=== PATIENT | female | born 1950 | race Caucasian/White ===

== ENCOUNTER 2018-05-02 00:03 | Emergency (ER) | payer MEDICARE ==
[~2018-05-02] VITALS: Ht 162.6 cm; Wt 104.5 kg
[2018-05-02 00:19] VITALS: TEMP 97.7
[2018-05-02] MEDS ORDERED: TRIAMCINOLONE A15 GM TP (01:33)
[2018-05-02 01:51] VITALS: BP 173/75; PULSE 83
== END 2018-05-02 01:59 | disposition home or self-care (01) ==
LOC: COL.ER 00:03
DX: I83.93 Asymptomatic varicose veins of bilateral lower extremities (principal); L29.9 Pruritus, unspecified; E11.9 Type 2 diabetes mellitus without complications; I10 Essential (primary) hypertension

== ENCOUNTER 2018-05-07 02:49 | Emergency (ER) | payer MEDICARE ==
[~2018-05-07] VITALS: Ht 162.6 cm; Wt 104.5 kg
[~2018-05-07 02:49] MED LIST: TRIAMCINOLONE A15 GM TP
[2018-05-07 02:52] VITALS: TEMP 98.4
[2018-05-07] MEDS ORDERED: LANTUS100 U/ML SQ (03:13)
[2018-05-07] MEDS ORDERED: GLUCOPHAGE1000 MG PO (03:13)
[2018-05-07] MEDS ORDERED: HUMALOG100 U/ML SQ (03:13)
[2018-05-07] MEDS ORDERED: MICARDIS HCT 251 TAB PO (03:14)
[2018-05-07 03:44] LABS: COLLECTION METHOD CLEAN CATCH
[2018-05-07 03:45] LABS: BASO % 0.4 % (0.0-2.0); EOS # 0.5 (0.0-0.7); EOS % 4.9 % (0-4.0); GRAN % 48.9 % (42.2-75.2); LYMPH # 3.8 (1.2-3.4); LYMPH % 37.6 % (20.0-51.0); MEAN CELL VOLUME 81 fl (80.0-100.0); MEAN CORPUSCULAR HEMOGLOBIN 29 pg (27.0-31.0); MEAN CORPUSCULAR HGB CONC 36 g/dl (33.0-37.0); MEAN PLATELET VOLUME 9.6 fl (7.4-10.4); MONO # 0.8 (0.1-0.6); MONO % 7.9 % (1.7-9.3); PLATELET COUNT 317 K/mm3 (130-400); REDCELL DISTRIBUTION WIDTH-CV 12.3 % (11.5-14.5)
[2018-05-07 03:52] LABS: PH 6 (5-8); SQUAMOUS EPITHELIAL 0-2 /hpf; URINE APPEARANCE Clear; URINE BACTERIA Rare /hpf; URINE BILIRUBIN Negative (NEGATIVE); URINE BLOOD Negative (NEGATIVE); URINE COLOR Yellow; URINE GLUCOSE Negative (NEGATIVE); URINE KETONE Negative (NEGATIVE); URINE LEUKOCYTE ESTERASE Negative (NEGATIVE); URINE NITRATE Negative (NEGATIVE); URINE PROTEIN(semi-quant) Negative (NEGATIVE); URINE RBC 0-2 /hpf; URINE UROBILINOGEN Negative (NEGATIVE)
[2018-05-07 04:00] LABS: ALBUMIN 4.2 gm/dL (3.5-5.0); BILIRUBIN,TOTAL 0.7 mg/dL (0.0-1.0); C-REACTIVE PROTEIN 1.1 mg/dL (0.0-0.9); CREATININE, serum 0.71 mg/dL (0.52-1.25); POTASSIUM 3.6 mmol/L (3.4-5.0); TOTAL PROTEIN 7.5 gm/dL (6.4-8.2)
[2018-05-07 04:32] LABS: ERYTHROCYTE SEDIMENTATION RATE 11 mm/hr (0-30)
[2018-05-07] MEDS ORDERED: MEDROL 4MG DOSPA4 MG PO (05:26)
[2018-05-07] MEDS ORDERED: ELIMITE TOP (05:26)
[2018-05-07] MEDS ORDERED: MICARDIS80 MG PO (05:26)
[2018-05-07 05:45] VITALS: BP 124/82; PULSE 86
== END 2018-05-07 05:45 | disposition home or self-care (01) ==
LOC: COL.ER 02:49
PROVIDERS: Emergency Medicine
DX: R21 Rash and other nonspecific skin eruption (principal); E11.9 Type 2 diabetes mellitus without complications; Z79.4 Long term (current) use of insulin
CPT/HCPCS: J7512

== ENCOUNTER 2019-01-06 23:44 | Emergency (ER) | payer MEDICARE ==
[~2019-01-06] VITALS: Ht 162.6 cm; Wt 98.2 kg
[~2019-01-06 23:44] MED LIST changes: +ELIMITE TOP; +GLUCOPHAGE1000 MG PO; +HUMALOG100 U/ML SQ; +LANTUS100 U/ML SQ; +MEDROL 4MG DOSPA4 MG PO; +MICARDIS HCT 251 TAB PO; +MICARDIS80 MG PO
[2019-01-07 02:45] VITALS: PULSE 82; TEMP 98.4
[2019-01-07 03:03] VITALS: BP 169/86
== END 2019-01-07 02:45 | disposition home or self-care (01) ==
LOC: COL.ER 23:44
DX: S62.306A Unspecified fracture of fifth metacarpal bone, right hand, initial encounter for closed fracture (principal); S20.211A Contusion of right front wall of thorax, initial encounter; I10 Essential (primary) hypertension; E11.9 Type 2 diabetes mellitus without complications; Z79.4 Long term (current) use of insulin; W01.0XXA Fall on same level from slipping, tripping and stumbling without subsequent striking against object, initial encounter; Y92.009 Unspecified place in unspecified non-institutional (private) residence as the place of occurrence of the external cause

== ENCOUNTER 2020-05-23 17:38 | Emergency (ER) | payer MEDICARE ==
[~2020-05-23] VITALS: Ht 162.6 cm; Wt 97.7 kg
[2020-05-23 17:46] VITALS: TEMP 98.7
[2020-05-23 18:39] LABS: BASO # 0.1 (0.0-0.2); BASO % 0.6 % (0.0-2.0); EOS # 0.2 (0.0-0.7); EOS % 1.9 % (0-4.0); GRAN # 4.6 (1.4-6.5); GRAN % 51.4 % (42.2-75.2); HEMATOCRIT 40.6 % (37.0-47.0); HEMOGLOBIN 13.5 g/dl (12.5-16.0); LYMPH # 3.4 (1.2-3.4); LYMPH % 37.7 % (20.0-51.0); MEAN CELL VOLUME 85 fl (80.0-100.0); MEAN CORPUSCULAR HEMOGLOBIN 28 pg (27.0-31.0); MEAN CORPUSCULAR HGB CONC 33 g/dl (33.0-37.0); MEAN PLATELET VOLUME 10.3 fl (7.4-10.4); MONO # 0.7 (0.1-0.6); PLATELET COUNT 305 K/mm3 (130-400); RED BLOOD COUNT 4.76 M/mm3 (4.10-5.30); REDCELL DISTRIBUTION WIDTH-CV 12.8 % (11.5-14.5)
[2020-05-23 18:45] LABS: ALBUMIN 4.2 gm/dL (3.5-5.0); BILIRUBIN,TOTAL 0.5 mg/dL (0.0-1.0); CALCIUM 9.4 mg/dL (8.4-10.2); CREATININE, serum 0.61 (0.52-1.25); MAGNESIUM 1.3 mg/dL (1.6-2.3); TOTAL PROTEIN 8.1 gm/dL (6.4-8.2)
[2020-05-23] MEDS ORDERED: EPA FISH OIL1 SGL PO (18:58)
[2020-05-23] MEDS ORDERED: ASPIRIN 81M81 MG/TA2 PO (18:59)
[2020-05-23] MEDS ORDERED: ZYRTEC 10MG10 MG PO (18:59)
[2020-05-23] MEDS ORDERED: BENADRYL25 M2 PO (19:00)
[2020-05-23] MEDS ORDERED: MOTRIN 200200 MG/TAB PO (19:01)
[2020-05-23 21:31] VITALS: BP 130/79; PULSE 84
[2020-05-23] MEDS ORDERED: LANTUS100 U/ML SQ (21:48)
== END 2020-05-23 21:58 | disposition home or self-care (01) ==
LOC: COL.ER 17:38
PROVIDERS: Emergency Medicine
DX: R20.2 Paresthesia of skin (principal); E11.9 Type 2 diabetes mellitus without complications; I10 Essential (primary) hypertension; Z79.4 Long term (current) use of insulin; Z79.82 Long term (current) use of aspirin
CPT/HCPCS: J3475

== ENCOUNTER 2020-10-20 00:09 | Observation (INO) | payer MEDICARE ==
[~2020-10-20] VITALS: Ht 162.6 cm; Wt 100.0 kg
[~2020-10-20 00:09] MED LIST changes: +ASPIRIN 81M81 MG/TA2 PO; +BENADRYL25 M2 PO; +EPA FISH OIL1 SGL PO; +MOTRIN 200200 MG/TAB PO; +ZYRTEC 10MG10 MG PO
[2020-10-20 01:04] LABS: COLLECTION METHOD CLEAN CATCH
[2020-10-20 01:10] LABS: PH 6 (5-8); SQUAMOUS EPITHELIAL None Seen /hpf; URINE APPEARANCE Clear; URINE BACTERIA None Seen /hpf; URINE BILIRUBIN Negative (NEGATIVE); URINE BLOOD Negative (NEGATIVE); URINE COLOR Straw; URINE GLUCOSE Negative (NEGATIVE); URINE KETONE Negative (NEGATIVE); URINE LEUKOCYTE ESTERASE Negative (NEGATIVE); URINE NITRATE Negative (NEGATIVE); URINE PROTEIN(semi-quant) Negative (NEGATIVE); URINE RBC None Seen /hpf; URINE UROBILINOGEN Negative (NEGATIVE)
[2020-10-20 01:45] LABS: BASO % 0.3 % (0.0-2.0); EOS # 0.1 (0.0-0.7); EOS % 0.8 % (0-4.0); GRAN # 7.1 (1.4-6.5); GRAN % 55.2 % (42.2-75.2); HEMOGLOBIN 15.1 g/dl (12.5-16.0); LYMPH # 4.7 (1.2-3.4); LYMPH % 36.4 % (20.0-51.0); MEAN CELL VOLUME 82 fl (80.0-100.0); MEAN CORPUSCULAR HEMOGLOBIN 29 pg (27.0-31.0); MEAN CORPUSCULAR HGB CONC 35 g/dl (33.0-37.0); MEAN PLATELET VOLUME 9.5 fl (7.4-10.4); MONO # 0.9 (0.1-0.6); MONO % 6.9 % (1.7-9.3); PLATELET COUNT 321 K/mm3 (130-400); RED BLOOD COUNT 5.27 M/mm3 (4.10-5.30); REDCELL DISTRIBUTION WIDTH-CV 12.3 % (11.5-14.5)
[2020-10-20 01:56] LABS: ALBUMIN 4.6 gm/dL (3.5-5.0); BILIRUBIN,TOTAL 0.8 mg/dL (0.0-1.0); CALCIUM 9.3 mg/dL (8.4-10.2); CREATININE, serum 0.63 (0.52-1.25); TOTAL PROTEIN 8.8 gm/dL (6.4-8.2)
[2020-10-20 02:08] LABS: MAGNESIUM 1.5 mg/dL (1.6-2.3)
[2020-10-20] MEDS ORDERED: HUMALOG100 U/ML SQ (05:05)
[2020-10-20] MEDS ORDERED: LANTUS100 U/ML SQ (05:05)
--- NOTE | 2020-10-20 06:10 | NUR ---
Patient arrives to the [facility] at 0610, alert and oriented. No pain, a little nausea earlier but better with the bag of sodium and magnesium. Some headache.
[2020-10-20 06:23] VITALS: BP 140/55; PULSE 68; TEMP 98.1
--- NOTE | 2020-10-20 07:15 | NUR ---
Lab in with pt at this time. Reported that they are not able to get any labs and would be back to try again. Pt reports feeling okay at this time. Gave her some gatorade to drink
[2020-10-20] MEDS ORDERED: LAMISIL250 M1 PO (08:03)
[2020-10-20 10:30] LABS: BASO # 0.1 (0.0-0.2); BASO % 0.4 % (0.0-2.0); EOS # 0.1 (0.0-0.7); EOS % 0.8 % (0-4.0); GRAN % 54.9 % (42.2-75.2); HEMOGLOBIN 14.1 g/dl (12.5-16.0); LYMPH # 4.6 (1.2-3.4); LYMPH % 36.3 % (20.0-51.0); MEAN CELL VOLUME 83 fl (80.0-100.0); MEAN CORPUSCULAR HEMOGLOBIN 29 pg (27.0-31.0); MEAN CORPUSCULAR HGB CONC 35 g/dl (33.0-37.0); MEAN PLATELET VOLUME 9.8 fl (7.4-10.4); MONO # 0.9 (0.1-0.6); MONO % 7.2 % (1.7-9.3); PLATELET COUNT 311 K/mm3 (130-400); RED BLOOD COUNT 4.82 M/mm3 (4.10-5.30); REDCELL DISTRIBUTION WIDTH-CV 12.3 % (11.5-14.5)
[2020-10-20 10:39] LABS: CREATININE, serum 0.57 (0.52-1.25); POTASSIUM 3.7 mmol/L (3.4-5.0)
--- NOTE | 2020-10-20 11:11 | NUR ---
Pt has been independent in the room. She was a hard stick for labs, BERNARD Boyle did get labs drawn. Pt has not had any overall pain complaints. She stated that she does have some nerve pain on her left arm and leg. She was to follow up with Dr Rollins in the last couple weeks, but stated she did not feel well enough.
[2020-10-20 11:28] VITALS: BP 154/84; PULSE 86; TEMP 98.2
--- NOTE | 2020-10-20 13:38 | NUR ---
Pt reports not feeling well. Checked her BS, it was 47. Gave pt some peanut butter, crackers, orange juice and milk. Pt is also ordering some lunch. She stated that she doesn't always take her insulin because she does not usually eat 3 meals a day. Pt did eat a good breakfast, and did have a general breakfast as it was not entered as an ADA diet at that time
[2020-10-20 15:39] LABS: CALCIUM 8.5 mg/dL (8.4-10.2); CREATININE, serum 0.69 (0.52-1.25); POTASSIUM 3.5 mmol/L (3.4-5.0)
[2020-10-20 16:30] VITALS: BP 142/68; PULSE 81; TEMP 98
[2020-10-20 17:30] LABS: CALCIUM 8.8 mg/dL (8.4-10.2); CREATININE, serum 0.69 (0.52-1.25); POTASSIUM 3.9 mmol/L (3.4-5.0)
--- NOTE | 2020-10-20 20:00 | NUR ---
Report received, assumed care for legal billing coordinator. Assessment complete. A&Ox3. Denies pain/nausea/shortness of breath. VS remain stable. NC WNL. Voiding without difficulty. No free water enforced-drinking gatorade. NS@75ml/hr to right forearm IV-infusing without difficulty. plan of care discussed for this shift to include HS meds/calling for needs. Verbalizes understanding. Call light in reach. Will monitor.
[2020-10-20 20:54] VITALS: BP 145/57; PULSE 79; TEMP 98.5
--- NOTE | 2020-10-20 21:22 | NUR ---
Called with c/o headache. Rating pain 6/10 on pain scale. Tramadol given per dr order. Will monitor.
[2020-10-20 22:22] LABS: CALCIUM 8.5 mg/dL (8.4-10.2); CREATININE, serum 0.67 (0.52-1.25)
--- NOTE | 2020-10-20 23:29 | NUR ---
Called with c/o cough/unable to sleep. Requesting robitussin and sleep aide. Hospitalist Radha notified and new orders initiated. Will continue to monitor.
[2020-10-20 23:45] VITALS: BP 153/63; PULSE 85; TEMP 97.9
[2020-10-21 04:23] VITALS: BP 144/78; BP 169/87; PULSE 83; TEMP 98.1
--- NOTE | 2020-10-21 04:46 | NUR ---
Rested well after receiving tramadol/robitussin/melatonin. C/O headache at the beginning of the shift. Tele showing SR with AVB. NC WNL. NA level increased to 130. IV fluids continue to infuse-NS@75ml/hr to right FA IV. Denies current needs. Call light in reach. Will monitor.
[2020-10-21 07:25] LABS: BASO % 0.4 % (0.0-2.0); EOS # 0.1 (0.0-0.7); EOS % 1.7 % (0-4.0); GRAN # 3.8 (1.4-6.5); GRAN % 45.8 % (42.2-75.2); LYMPH # 3.6 (1.2-3.4); LYMPH % 42.7 % (20.0-51.0); MEAN CELL VOLUME 84 fl (80.0-100.0); MEAN CORPUSCULAR HGB CONC 34 g/dl (33.0-37.0); MEAN PLATELET VOLUME 9.8 fl (7.4-10.4); MONO # 0.8 (0.1-0.6); MONO % 9.2 % (1.7-9.3); PLATELET COUNT 249 K/mm3 (130-400); RED BLOOD COUNT 4.21 M/mm3 (4.10-5.30); REDCELL DISTRIBUTION WIDTH-CV 12.3 % (11.5-14.5)
[2020-10-21 07:26] LABS: HEMATOCRIT 35.2 % (37.0-47.0); HEMOGLOBIN 12.1 g/dl (12.5-16.0); MEAN CORPUSCULAR HEMOGLOBIN 29 pg (27.0-31.0)
[2020-10-21 07:58] LABS: CALCIUM 8.4 mg/dL (8.4-10.2); CREATININE, serum 0.61 (0.52-1.25); POTASSIUM 3.7 mmol/L (3.4-5.0)
[2020-10-21 08:17] VITALS: BP 143/62; PULSE 75; TEMP 98
--- NOTE | 2020-10-21 09:00 | NUR ---
PT PLEASANT, AOX4, DENIES PAIN/DISCOMFORT, IV SITE CDI W/O ERYTHEMA, PT R LEG SLIGHTLY WEAKER THAN LEFT, ASSESSMENT PERFORMED, MEDICATIONS GIVEN, INSULIN ADMINSITRATION DISCUSSED WITH TATIANNA ALLAN. 60 UNITS OF NOVOLOG HELD.
[2020-10-21] MEDS ORDERED: AMOXICILLIN 8751 TAB PO (10:25)
[2020-10-21] MEDS ORDERED: ROBITUSSIN DM 105 ML PO (10:28)
[2020-10-21] MEDS ORDERED: MICARDIS80 MG PO (10:32)
[2020-10-21 11:53] VITALS: BP 146/53; PULSE 78; TEMP 97.7
--- NOTE | 2020-10-21 14:48 | NUR ---
DISCHARGE EDUCATION PROVIDED, IV REMOVED, TELE DC'D. PT PLEASANT, ATE 100% OF LUNCH, NO OTHER NEEDS
--- NOTE | 2020-10-21 15:28 | NUR ---
green end worker met with patient to discuss discharge planning. Patient states she will return home where she lives alone and has her car in the parking to drive home. Patient's primary care provider is Dr Rust and patient denies concerns related to discharging home today.
[2020-10-21 16:43] VITALS: BP 161/71; PULSE 84; TEMP 98.1
--- NOTE | 2020-10-21 18:37 | NUR ---
pt wanting to stay to eat dinner, insulin given, discharge paperwork finished and pt reports she is driving herself home, no other needs before pt leaves facility
--- NOTE | 2020-10-21 19:03 | NUR ---
PT ESCORTED OUT VIA WHEELCHAIR WITH PT BELONGINGS. NO OHTER NEEDS
== END 2020-10-21 19:03 | disposition home or self-care (01) ==
LOC: COL.ER 00:09 → MEDICAL 02:23
PROVIDERS: Emergency Medicine; Nurse Practitioner Family; Physician Assistant; ADMIT Internal Medicine
DX: E87.1 Hypo-osmolality and hyponatremia (principal); E83.42 Hypomagnesemia; N28.9 Disorder of kidney and ureter, unspecified; J22 Unspecified acute lower respiratory infection; J01.80 Other acute sinusitis; B96.89 Other specified bacterial agents as the cause of diseases classified elsewhere; E11.9 Type 2 diabetes mellitus without complications; I10 Essential (primary) hypertension; Z20.822 Contact with and (suspected) exposure to COVID-19; R74.01 Elevation of levels of liver transaminase levels; N28.1 Cyst of kidney, acquired; R19.7 Diarrhea, unspecified; R01.1 Cardiac murmur, unspecified; Z79.4 Long term (current) use of insulin; Z79.82 Long term (current) use of aspirin; Z79.899 Other long term (current) drug therapy
CPT/HCPCS: G0378; J1650; J1815; J1885; J2060; J3475; J7030; Q9967

== ENCOUNTER 2022-11-06 04:46 | Emergency (ER) | payer MEDICARE, MEDICAID ==
[~2022-11-06] VITALS: Ht 162.6 cm; Wt 100.0 kg
[~2022-11-06 04:46] MED LIST changes: +AMOXICILLIN 8751 TAB PO; +APRESOLINE 25MG25 MG PO; +APRESOLINE50 MG PO; +LAMISIL250 M1 PO; +LEVEMIR100 U/ML; +LIPITOR 80MG80 MG PO; +NYSTATIN OR100 MU/ML PO; +ROBITUSSIN DM 105 ML PO
[2022-11-06 04:53] VITALS: TEMP 98.2
[2022-11-06 05:48] LABS: BASO # 0.1 K/mm3 (0.0-0.2); BASO % 0.6 % (0.0-2.0); EOS # 0.2 K/mm3 (0.0-0.7); EOS % 2.6 % (0.0-4.0); GRAN # 4.1 K/mm3 (1.4-6.5); HEMATOCRIT 39.7 % (37.0-47.0); HEMOGLOBIN 12.9 g/dl (12.5-16.0); LYMPH % 35.6 % (20.0-51.0); MEAN CELL VOLUME 88 fl (80.0-100.0); MEAN CORPUSCULAR HEMOGLOBIN 29 pg (27-31); MEAN CORPUSCULAR HGB CONC 33 g/dl (33.0-37.0); MEAN PLATELET VOLUME 9.8 fl (7.4-10.4); MONO # 1.1 K/mm3 (0.1-0.6); PLATELET COUNT 253 K/mm3 (130-400); RED BLOOD COUNT 4.52 M/mm3 (4.10-5.30)
[2022-11-06 06:08] LABS: BILIRUBIN,TOTAL 0.4 mg/dL (0.2-1.2); CALCIUM 9.6 mg/dL (8.4-10.2); CREATININE, serum 0.85 mg/dL (0.57-1.11); MAGNESIUM 1.7 mg/dL (1.6-2.6); PHOSPHOROUS 3.4 mg/dL (2.3-4.7); POTASSIUM 3.9 mmol/L (3.5-4.5); TOTAL PROTEIN 7.5 gm/dL (6.2-8.1)
[2022-11-06 06:14] LABS: TROPONIN-I 0.02 ng/mL (0.00-0.033)
[2022-11-06 06:35] VITALS: BP 123/88; PULSE 93
== END 2022-11-06 06:35 | disposition home or self-care (01) ==
LOC: COL.ER 04:46
PROVIDERS: Emergency Medicine
DX: I10 Essential (primary) hypertension (principal); E11.65 Type 2 diabetes mellitus with hyperglycemia; Z28.310 Unvaccinated for COVID-19

== ENCOUNTER 2023-03-23 05:25 | Emergency (ER) | payer MEDICARE, MEDICAID ==
[~2023-03-23] VITALS: Ht 162.6 cm; Wt 102.9 kg
[2023-03-23 05:26] VITALS: TEMP 97.9
[2023-03-23 05:59] LABS: BASO % 0.4 % (0.0-2.0); EOS # 0.3 K/mm3 (0.0-0.7); EOS % 3.4 % (0.0-4.0); GRAN # 4.8 K/mm3 (1.4-6.5); GRAN % 47.6 % (42.2-75.2); HEMATOCRIT 41.4 % (37.0-47.0); HEMOGLOBIN 13.7 g/dl (12.5-16.0); LYMPH # 4.1 K/mm3 (1.2-3.4); LYMPH % 41.3 % (20.0-51.0); MEAN CELL VOLUME 87 fl (80.0-100.0); MEAN CORPUSCULAR HEMOGLOBIN 29 pg (27-31); MEAN CORPUSCULAR HGB CONC 33 g/dl (33.0-37.0); MEAN PLATELET VOLUME 9.7 fl (7.4-10.4); MONO # 0.7 K/mm3 (0.1-0.6); PLATELET COUNT 279 K/mm3 (130-400); RED BLOOD COUNT 4.77 M/mm3 (4.10-5.30)
[2023-03-23 06:22] LABS: BILIRUBIN,TOTAL 0.3 mg/dL (0.2-1.2); CALCIUM 9.3 mg/dL (8.4-10.2); CREATININE, serum 0.87 mg/dL (0.57-1.11); POTASSIUM 4.1 mmol/L (3.5-4.5); TOTAL PROTEIN 7.7 gm/dL (6.2-8.1)
[2023-03-23 06:27] LABS: TROPONIN-I 0.014 ng/mL (0.00-0.033)
[2023-03-23 06:58] VITALS: BP 134/73; PULSE 78
== END 2023-03-23 06:58 | disposition home or self-care (01) ==
LOC: COL.ER 05:25
PROVIDERS: Emergency Medicine
DX: I10 Essential (primary) hypertension (principal); E11.9 Type 2 diabetes mellitus without complications; E87.1 Hypo-osmolality and hyponatremia; H26.9 Unspecified cataract; K03.81 Cracked tooth; Z79.899 Other long term (current) drug therapy